=== PATIENT | female | born 1985 | race Caucasian/White ===

== ENCOUNTER 2023-02-12 08:36 | Outpatient (CLI) | payer OTHER, SELFPAY ==
--- NOTE | 2023-02-12 08:45 | CRLHL7_ITS ---
For Patients: As a result of the Century Cures Act, medical imaging exams and procedure reports are released immediately into your electronic medical record. You may view this report before your referring provider. If you have questions, please contact your health care provider. BILATERAL DIAGNOSTIC MAMMOGRAM WITH COMPUTER-AIDED DETECTION AND TOMOSYNTHESIS CLINICAL HISTORY: RIGHT breast lump. COMPARISON: None. TECHNIQUE: Digital BILATERAL mammogram in 4 projections. Computer-aided detection and tomosynthesis were used. Real-time ultrasound imaging of RIGHT breast with imaging documentation. BREAST COMPOSITION: The breasts are extremely dense, which lowers the sensitivity of mammography FINDINGS: 3D CC/MLO BILATERAL mammogram images submitted. Nodular density within the lateral RIGHT breast without architectural distortion. Normal LEFT breast mammogram images. No adenopathy or suspicious calcifications. Targeted RIGHT breast ultrasound performed 9 o`clock 5 cm from the nipple. In this location, there is a circumscribed macrolobular hypoechoic solid nodule measuring 0.6 x 1.2 x 1.5 cm. Associated coarse calcification is noted. IMPRESSION: 1.5 cm solid palpable nodule RIGHT breast 9 o`clock 5 cm from the nipple. RECOMMENDATIONS: Ultrasound-guided core needle biopsy. BI-RADS Category 4: Suspicious Results and recommendations discussed with the patient. Dictated by Naun Santos MD @ 02/12/2023 9:54:29 AM/maritza PRO/Dictated by: Naun Santos MD @ 02/12/2023 9:54:00 AM (Electronically Signed)
--- NOTE | 2023-02-12 09:15 | CRLHL7_ITS ---
For Patients: As a result of the Century Cures Act, medical imaging exams and procedure reports are released immediately into your electronic medical record. You may view this report before your referring provider. If you have questions, please contact your health care provider. PLEASE SEE BILATERAL DIAGNOSTIC MAMMOGRAM OF SAME DAY. CRL:maritza INOCENCIA/Dictated by: Naun Santos MD @ 02/12/2023 9:54:00 AM (Electronically Signed)
== END 2023-02-12 08:37 | disposition home or self-care (01) ==
PROVIDERS: PCP Obstetrics & Gynecology; Visit Provider Physician Assistant
DX: N63.10 Unspecified lump in the right breast, unspecified quadrant (principal)
CPT/HCPCS: 76642; 77066; G0279

== ENCOUNTER 2023-03-07 08:09 | Outpatient (CLI) | payer OTHER, SELFPAY ==
--- NOTE | 2023-03-07 08:15 | CRLHL7_ITS ---
For Patients: As a result of the Century Cures Act, medical imaging exams and procedure reports are released immediately into your electronic medical record. You may view this report before your referring provider. If you have questions, please contact your health care provider. INDICATION: Solid palpable mass lateral RIGHT breast 9 o`clock position, 5 cm from the nipple measuring 0.6 x 1.2 x 1.5 cm. Ultrasound-guided biopsy is to be performed for diagnosis. Informed consent was obtained. Benefits and risks were discussed. The patient agreed to proceed. [facility] Protocol: A. Pre-procedure verification complete: Yes 1-relevant information/documentation available, reviewed and properly matched to the patient; 2-consent accurate and complete, 3-equipment and supplies available. B. Site marking complete: Yes Site marked if not in continuous attendance with patient. C. TIME OUT completed: Yes Time Out was conducted just prior to starting procedure to verify the eight required elements: 1-patient identity, 2-consent accurate and complete, 3-position, 4-correct side/site marked (if applicable), 5-procedure, 6-relevant images/results properly labeled and displayed (if applicable), 7-antibiotics/irrigation fluids (if applicable), 8-safety precautions, 9-laboratory results were reviewed. Utilizing sterile technique and 1 percent lidocaine for local anesthetic, using a 14-gauge biopsy gun, six passes were made into the lesion at the 9 o`clock position, 5 cm from the nipple. The patient tolerated the biopsy well. No immediate complications. Subsequently, a post biopsy clip was placed into the lesion. The patient tolerated the procedure well. No immediate complications. Post procedure mammogram is pending. IMPRESSION: Technically successful ultrasound-guided biopsy of an oval-shaped solid mass in the mid outer RIGHT breast. ACR not applicable Dictated by Valentino Alvarez MD @ 03/07/2023 12:36:07 PM ----ADDENDUM---- IMPRESSION: Pathology consistent with benign fibroadenoma. No atypia or malignancy. This is concordant. Clinical follow-up and age-appropriate screening mammography recommended. Dictated by: Naun Santos MD @03/11/2023 1:12:55 PM/jsb (Electronically Signed)
--- NOTE | 2023-03-07 09:00 | CRLHL7_ITS ---
For Patients: As a result of the Cures Act, medical imaging exams and procedure reports are released immediately into your electronic medical record. You may view this report before your referring provider. If you have questions, please contact your health care provider. INDICATION: Follow up RIGHT breast biopsy. Clip placement. TECHNIQUE: Unilateral RIGHT breast mammogram performed utilizing CC, true mL, and MLO views. FINDINGS: Dense breast tissue. Biopsy clip 9 o`clock position, 5 cm from the nipple. Adequate placement. IMPRESSION: Technically successful clip placement of the RIGHT breast. ACR not applicable Dictated by Valentino Alvarez MD @ 03/07/2023 12:39:13 PM (Electronically Signed)
== END 2023-03-07 08:10 | disposition home or self-care (01) ==
LOC: US 08:11
PROVIDERS: PCP Obstetrics & Gynecology; Visit Provider Obstetrics & Gynecology
DX: N63.10 Unspecified lump in the right breast, unspecified quadrant (principal); D24.1 Benign neoplasm of right breast
CPT/HCPCS: 19083; 77065; 88305; A4648; A4649